=== PATIENT | male | born 1950 | race Caucasian/White ===

== ENCOUNTER → 2024-11-21 | Day surgery (SDC) | payer MEDICARE, BC ==
[2024-11-17 10:40] VITALS: BMI 31.6
[~2024-11-21] MED LIST: CEFAZOLIN 2 GM VIAL ONE; KETAMINE 100 MG/ML (5ML VIAL) ONE; Sevoflurane 250 ML INH ANEST BOTTLE ONE
[2024-11-21 11:26] LABS: Anion Gap 12 mmol/L (10-20); BUN (Urea Nitrogen) 26 mg/dL (8.4-25.7); Calc. Creatinine Clearance 82 mL/min (70-130); Calcium 9.7 mg/dL (7.8-10.44); Carbon Dioxide 30 mmol/L (23-31); Chloride 99 mmol/L (98-107); Glucose 139 mg/dL (83-110); Potassium 4.9 mmol/L (3.5-5.1); Sodium 136 mmol/L (136-145)
== END ==
LOC: CSHSDC 10:04
PROVIDERS: ATTEND Podiatrist Foot & Ankle Surgery
PROC: 0Y6Q0Z3 Detachment at Left 1st Toe, Low, Open Approach (ICD-10-PCS; principal; 2024-11-21)
DX: M86.8X7 Other osteomyelitis, ankle and foot (principal); I10 Essential (primary) hypertension; I25.10 Atherosclerotic heart disease of native coronary artery without angina pectoris; E11.9 Type 2 diabetes mellitus without complications; E78.5 Hyperlipidemia, unspecified; K21.9 Gastro-esophageal reflux disease without esophagitis
CPT/HCPCS: 28825; 80048; 93005; J0665; J2250; J2704; 36415; 88305; 88311; 93010